=== PATIENT | male | born 1955 | race Caucasian/White ===

== ENCOUNTER 2017-04-27 08:56 | Emergency (ER) | payer BC ==
[~2017-04-27] VITALS: Ht 185.4 cm; Wt 86.4 kg
[2017-04-27 08:59] VITALS: TEMP 97.5
[2017-04-27] MEDS ORDERED: INDERAL 10MG10 MG PO (09:22)
[2017-04-27] MEDS ORDERED: OSCAL 500 TAB500 MG PO (09:22)
[2017-04-27] MEDS ORDERED: ARGENINE PO (09:23)
[2017-04-27] MEDS ORDERED: LUTEIN6 MG PO (09:23)
[2017-04-27 11:35] LABS: BASO % 0.2 % (0.0-2.0); EOS % 0.5 % (0-4.0); GRAN # 4.6 (1.4-6.5); HEMATOCRIT 47.4 % (42.0-52.0); HEMOGLOBIN 15.9 g/dl (13.5-18.0); LYMPH # 0.9 (1.2-3.4); LYMPH % 15.1 % (20.0-51.0); MEAN CELL VOLUME 96 fl (80.0-100.0); MEAN CORPUSCULAR HEMOGLOBIN 32 pg (27.0-31.0); MEAN CORPUSCULAR HGB CONC 34 g/dl (33.0-37.0); MEAN PLATELET VOLUME 11.3 fl (7.4-10.4); MONO # 0.4 (0.1-0.6); PLATELET COUNT 149 K/mm3 (130-400); RED BLOOD COUNT 4.96 M/mm3 (4.20-5.60); REDCELL DISTRIBUTION WIDTH-CV 13.4 % (11.5-14.5)
[2017-04-27 12:11] LABS: ALBUMIN 4.8 gm/dL (3.5-5.0); BILIRUBIN,TOTAL 1.1 mg/dL (0.0-1.0); CALCIUM 10.2 mg/dL (8.4-10.2); CREATININE, serum 0.78 mg/dL (0.66-1.25); POTASSIUM 4.5 mmol/L (3.4-5.0); TOTAL PROTEIN 8.1 gm/dL (6.4-8.2)
[2017-04-27 12:13] LABS: COLLECTION METHOD CLEAN CATCH
[2017-04-27 12:18] LABS: MUCOUS Present /lpf; PH 7 (5-8); SQUAMOUS EPITHELIAL 0-2 /hpf; URINE APPEARANCE Clear; URINE BACTERIA None Seen /hpf; URINE BILIRUBIN Negative (NEGATIVE); URINE BLOOD Negative (NEGATIVE); URINE COLOR Yellow; URINE GLUCOSE Negative (NEGATIVE); URINE KETONE Trace (NEGATIVE); URINE LEUKOCYTE ESTERASE Negative (NEGATIVE); URINE NITRATE Negative (NEGATIVE); URINE PROTEIN(semi-quant) Negative (NEGATIVE); URINE RBC 0-2 /hpf
[2017-04-27 12:33] LABS: C-REACTIVE PROTEIN 0.6 mg/dL (0.0-0.9)
[2017-04-27 13:22] VITALS: BP 129/88; PULSE 66
== END 2017-04-27 13:20 | disposition home or self-care (01) ==
LOC: COL.ER 08:56
PROVIDERS: Family Medicine
DX: R56.9 Unspecified convulsions (principal); Z86.79 Personal history of other diseases of the circulatory system
CPT/HCPCS: J2405; J7030